=== PATIENT | female | born 1980 | race Caucasian/White ===

== ENCOUNTER 2019-03-26 00:22 | Day surgery (SDC) | payer OTHER | END 2019-03-26 08:30 | disposition home or self-care (01) | LOC: ATC 00:22 → LAB 00:22 → ATC 08:00 | DX: R00.2 Palpitations (principal); R42 Dizziness and giddiness; Z88.8 Allergy status to other drugs, medicaments and biological substances | CPT/HCPCS: 36415; 80400; 82533; 96372; J0834 ==

== ENCOUNTER 2019-09-01 11:33 | Emergency (ER) | payer OTHER ==
[~2019-09-01] VITALS: Ht 175.3 cm; Wt 72.6 kg
== END 2019-09-01 13:27 | disposition home or self-care (01) ==
LOC: ER 11:33
DX: S93.401A Sprain of unspecified ligament of right ankle, initial encounter (principal); Z88.5 Allergy status to narcotic agent; X50.1XXA Overexertion from prolonged static or awkward postures, initial encounter
CPT/HCPCS: 29515; 73610; 99283-25

== ENCOUNTER 2020-01-23 22:26 | Emergency (ER) | payer OTHER ==
[~2020-01-23] VITALS: Ht 175.3 cm; Wt 68.0 kg
[2020-01-24 00:34] LABS: BASOPHILS ABSOLUTE AUTO 0.07 K/mm3 (0.00-0.23); BASOPHILS PERCENT AUTO 0 % (0-2); EOSINOPHILS PERCENT AUTO 0 % (0-6); Hemoglobin 18.4 g/dL (11.5-16.0); IMMATURE GRAN ABSOLUTE AUTO 0.34 K/mm3 (0.00-0.10); IMMATURE GRAN PERCENT AUTO 1 % (0-1); LYMPHOCYTES ABSOLUTE AUTO 1.86 K/mm3 (0.84-5.20); LYMPHOCYTES PERCENT AUTO 5 % (21-46); MONOCYTES ABSOLUTE AUTO 1.69 K/mm3 (0.16-1.47); MONOCYTES PERCENT AUTO 5 % (4-13); Mean Corpuscular HGB Conc 32.8 g/dL (31.5-36.5); Mean Corpuscular Volume 91 fL (80-100); Mean Platelet Volume 10.6 fL (9.1-12.4); NEUTROPHILS ABSOLUTE AUTO 30.74 K/mm3 (1.96-9.15); NEUTROPHILS PERCENT AUTO 89 % (41-73); Platelet Count 316 K/mm3 (150-400); Red Blood Cell Count 6.14 M/mm3 (3.80-5.20)
[2020-01-24 00:37] LABS: Hematocrit 56.1 % (33.0-51.0)
[2020-01-24 00:47] LABS: Alanine Aminotransfer (ALT/SGP 24 U/L (12-78); Albumin, Blood 4.3 g/dL (3.4-5.0); Alk Phos 86 U/L (50-136); Anion Gap 21 mmol/L (6-16); Aspartate Aminotrans (AST/SGOT 47 U/L (12-37); Bilirubin, Total 0.9 mg/dL (0.1-1.0); Blood Urea Nitrogen 18 mg/dL (8-24); Bun/Creatinine Ratio 13.3 (12.0-20.0); CO2, Blood 14 mmol/L (21-32); Calcium, Blood 9.3 mg/dL (8.5-10.1); Chloride, Blood 104 mmol/L (98-108); Creatinine, Blood 1.35 mg/dL (0.40-1.00); Globulin, Blood 4.3 g/dL (2.2-4.0); Glomerular Filtration Rate 47 (60-); Glucose, Blood 220 mg/dL (70-99); Potassium, Blood 3.9 mmol/L (3.5-5.5); Sodium, Blood 139 mmol/L (136-145); Total Protein, Blood 8.6 g/dL (6.4-8.2)
[2020-01-24 03:57] LABS: C-Reactive Protein, High Sens. 6.04 mg/L (0.000-3.000); D-Dimer, Quantitative 1.2 mg/L FEU (0.00-0.52); International Normalized Ratio 1.43
[2020-01-24 04:18] LABS: Influenza A Negative (NEGATIVE); Influenza B Negative (NEGATIVE)
[2020-01-24 04:26] LABS: PCO2 Arterial 52.6 mmHg (35-45); pH Blood Arterial <6.80 (7.35-7.45)
[2020-01-24 04:30] LABS: Creatine Kinase MB 40.9 ng/mL (0.0-3.6); Creatine Kinase MB Index 12.7 (0.0-4.0)
[2020-01-24 04:31] LABS: Source, Urine Catheter
[2020-01-24 04:34] LABS: Bilirubin, Urine Neg (Neg); Blood, Urine 4+ (Neg); Glucose Qualitative, Urine 4+ (Neg); Ketones, Urine 2+ (Neg); Leukocyte Esterase, Urine Neg (Neg); Nitrite, Urine Neg (Neg); Protein, Urine 3+ (Neg); Urobilinogen, Urine NORM (Normal)
[2020-01-24 04:35] LABS: Appearance, Urine Hazy (Clear); Color, Urine Yellow (P-Yellow)
[2020-01-24 04:41] LABS: Amorphous Heavy (0-Heavy); Bacteria Few /hpf; Squamous Epithelial Cells Few /hpf (Few); White Blood Cells, Urine Rare /hpf (0-5)
[2020-01-24 04:43] LABS: U Amphetamine Screen Not Detected; U Barbituate Screen Not Detected; U Benzodiazapine Screen Not Detected; U Buprenorphine Screen Not Detected; U Cannabinoids Screen Not Detected; U Cocaine Screen Not Detected; U Methadone Screen Not Detected; U Methamphetamine Screen Not Detected; U Opiates Screen Not Detected; U Oxycodone Screen Not Detected; U Phencyclidine Screen Not Detected; U Propoxyphene Screen Not Detected
--- NOTE | 2020-01-24 05:05 | NUR ---
Echocardiogram with [employer] was completed by Shilpa Leung.
--- NOTE | 2020-01-24 07:56 | NUR ---
Call back - Pt had passed spouse was present and rapport was built. Spouse encouraged to reminisce and responded well. Reflecting and weeping done intermittently and appropriately. Pt has 4 children between the ages of 6-13. Family have spiritual support from [facility] [employer] in [place]. Pt's mother enters and condolences offered. I offer to keep family in my prayers.
== END 2020-01-24 11:06 ==
LOC: ER 22:26
PROVIDERS: Emergency Medicine
DX: A41.9 Sepsis, unspecified organism (principal); J18.9 Pneumonia, unspecified organism; R65.21 Severe sepsis with septic shock; R57.0 Cardiogenic shock; N17.9 Acute kidney failure, unspecified; R79.89 Other specified abnormal findings of blood chemistry; E87.2 Acidosis; R40.20 Unspecified coma; J96.01 Acute respiratory failure with hypoxia; Z20.828 Contact with and (suspected) exposure to other viral communicable diseases; Z88.5 Allergy status to narcotic agent; Z88.8 Allergy status to other drugs, medicaments and biological substances
CPT/HCPCS: 31500; 31720; 36415; 36430; 36600; 36620; 51702; 71046; 71260; 80053; 81001; 82271; 82550; 82553; 82728; 82803; 83605; 83615; 83880; 84145; 84484; 85025; 85379; 85610; 85730; 86141; 86850; 86900; 86901; 86923; 87040; 87804; 92950; 93005; 93010; 94002; 96361; 96365; 96366-59; 96367; 96368; 96375-59; 96376; 99291-25; 99292; C8929; C9113; J0171; J0282; J1940; J1956; J2060; J2543; J2704; J3010; J3370; J3475; J7030; J7060; J7070; P9016; Q9957; Q9967; U0003